=== PATIENT | female | born 1995 | race Caucasian/White ===

== ENCOUNTER 2025-05-03 08:39 | Outpatient (CLI) | payer MEDICAID ==
--- NOTE | 2025-05-03 11:37 | ELECTROCARDIOGRAPH REPORT ---
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 KELLY Wakefield Measurements Intervals [place] Rate: 74 P: 38 SD: 180 QRS: 55 QRSD: 108 T: 41 QT: 362 QTc: 402 Interpretive Statements Sinus rhythm RSR' in V1 or V2, right VCD or RVH Electronically Signed On 05-03-2025 14:16:[address] KELLY Wakefield Please click the below link to view image of tracing.
== END 2025-05-03 23:59 | disposition home or self-care (01) ==
LOC: RAD 08:39
PROVIDERS: ATTEND Nurse Practitioner Psychiatric/Mental Health
DX: Z79.899 Other long term (current) drug therapy (principal)
CPT/HCPCS: 93005